=== PATIENT | male | born 1970 | race Caucasian/White ===

== ENCOUNTER → 2016-10-25 | Outpatient (CLI) | payer OTHER ==
--- NOTE | 2016-10-25 17:40 | Diagnostic Imaging Report ---
INDICATION: Low back pain, worse with twisting for four weeks. FINDINGS: Three views of the lumbar spine show normal height and alignment of the vertebral bodies. There is mild disc space narrowing at all levels as well as mild spondylosis. There is some sclerosis of the facets at L4 and L5. There is no fracture. IMPRESSION: There is mild degenerative disc and facet disease present with no acute abnormality seen. Dictated by: Dictated on workstation # [id number]
== END ==
LOC: RAD 17:06
PROVIDERS: ATTEND Nurse Practitioner Family
DX: M54.5 Low back pain (principal)
CPT/HCPCS: 72100

== ENCOUNTER 2019-02-12 20:46 | Outpatient (CLI) | payer OTHER | END 2019-02-13 06:40 | disposition home or self-care (01) | LOC: SLEEP 20:46 | PROVIDERS: ATTEND Otolaryngology Otolaryngology/Facial Plastic Surgery | DX: G47.33 Obstructive sleep apnea (adult) (pediatric) (principal); G25.89 Other specified extrapyramidal and movement disorders; G47.69 Other sleep related movement disorders | CPT/HCPCS: 95811 ==

== ENCOUNTER → 2021-05-03 | Outpatient (CLI) | payer OTHER ==
--- NOTE | 2021-05-03 12:39 | Diagnostic Imaging Report ---
Indication: Low back pain. Compared: 10/25/2016 Findings: Lumbar statures are stable. There is retrolisthesis grade 1 L5 on S1 unchanged, remaining levels align normally. Mild multilevel spondylosis with disc space narrowing and endplate sclerosis with anteriorly directed osteophytes stable. Lower lumbar facet arthrosis chronic. No acute finding . Impression: Stable grade 1 degenerative retrolisthesis 5 on 1 with multilevel spondylosis and facet arthrosis unchanged from prior. Dictated by: Dictated on workstation # [id number]
== END ==
LOC: RAD 11:08
DX: M47.816 Spondylosis without myelopathy or radiculopathy, lumbar region (principal); M43.16 Spondylolisthesis, lumbar region
CPT/HCPCS: 72100

== ENCOUNTER → 2021-05-18 | Outpatient (CLI) | payer OTHER ==
--- NOTE | 2021-05-18 14:50 | Diagnostic Imaging Report ---
Indication: Pre-MRI screening. TIME OF EXAM: 2:51 PM 2 views the orbits were obtained. No radiopaque orbital foreign body is detected. IMPRESSION: No evidence of radiopaque orbital foreign bodies. Dictated by: Dictated on workstation # [id number]
--- NOTE | 2021-05-18 19:13 | Diagnostic Imaging Report ---
PROCEDURE: MRI lumbar spine without contrast. TECHNIQUE: Multiplanar, multisequence MRI of the lumbar spine was performed without contrast. INDICATION: Low back pain. COMPARISON: 05/03/2021. FINDINGS: Five lumbar-type vertebral bodies are visualized with the last well-formed disc space designated L5-S1. No acute fracture or dislocation is seen in the lumbar spine. Alignment is anatomic. Vertebral body heights and disc spaces are well maintained. The bone marrow signal is normal. The conus terminates at the T12-L1 level. No masses are seen associated with the conus or nerve roots of the cauda equina. There is redundancy of the nerve roots of the cauda equina at the L1 and L2 levels secondary to the stenosis at the L2-L3 level. No epidural collections are identified. Multilevel degenerative changes are seen in the lumbar spine with disc bulges, facet hypertrophy, and buckling of the ligamentum flavum. T12-L1: No significant spinal canal or foraminal stenosis. L1-L2: No significant spinal canal or foraminal stenosis. L2-L3: Broad-based disc bulge with right paracentral extrusion with caudal migration of disc contents caudally right of midline, facet hypertrophy, and buckling of the ligamentum flavum result in severe spinal canal stenosis, severe right lateral recess stenosis, and severe right and [id number] left foraminal stenosis. L3-L4: Broad-based disc bulge, facet hypertrophy, and buckling of the ligamentum flavum result in moderate spinal canal stenosis and [id number] bilateral foraminal stenosis. L4-L5: Broad-based disc bulge, facet hypertrophy, and buckling of the ligamentum flavum result in moderate spinal canal stenosis and moderate bilateral foraminal stenosis. L5-S1: Broad-based disc bulge with annular fissure, facet hypertrophy, and buckling of the ligamentum flavum results in hycr-ij-jrggijjh spinal canal stenosis and moderate right and severe left foraminal stenosis. Paravertebral soft tissues are unremarkable. IMPRESSION: 1. No acute fracture or dislocation in the lumbar spine. 2. Multilevel degenerative changes in the lumbar spine, greatest at L2-L3 level with a prominent right paracentral disc extrusion resulting in severe spinal canal and right lateral recess stenosis. Dictated by: Dictated on workstation # [id number]
== END ==
LOC: RAD 14:45
DX: M47.816 Spondylosis without myelopathy or radiculopathy, lumbar region (principal); M48.061 Spinal stenosis, lumbar region without neurogenic claudication
CPT/HCPCS: 72148

== ENCOUNTER 2021-09-23 15:34 | Outpatient (RCR) | payer OTHER | END 2021-09-23 16:11 | disposition home or self-care (01) | PROVIDERS: ATTEND Nurse Practitioner | DX: Z48.89 Encounter for other specified surgical aftercare (principal); I10 Essential (primary) hypertension; Z98.1 Arthrodesis status ==

== ENCOUNTER → 2023-03-24 | Outpatient (CLI) | payer OTHER, SELFPAY ==
--- NOTE | 2023-03-24 17:11 | Diagnostic Imaging Report ---
CLINICAL HISTORY: Hypertension. COMPARISON: None. TECHNIQUE: Non-contrast enhanced EKG-gated axial images were obtained with a coned down field of view to assess for coronary calcium. Post processing of the images was performed on an independent work station. CTDI volume 5.86 mGy DLP 82 mGy*cm FINDINGS: Important Information About Your Scan: The following information is based on an analysis of the coronary arteries only. Calcium deposits do not correspond directly to the percentage of narrowing of the arteries. They do correlated directly to the amount of coronary plaque, and to the risk of future coronary disease. The calcium deposits usually begin to form years before any symptoms develop. Early detection and modification of risk factors, such as smoking and cholesterol intake, can slow the progress of coronary artery disease. A low score suggests a low likelihood of coronary artery disease, but does not exclude the possibility of significant coronary artery narrowing. The results should be discussed with your physician, taking into account other risk factors such as age, gender, family history, diabetes, smoking or high cholesterol levels. Should you ever experience chest pain, difficulty breathing, discomfort radiating into your neck or arm, or discomfort combined with lightheadedness, sweating, fainting or nausea, you should seek prompt medical attention. Calcium Score: Agatston units 0 - 0: No identifiable atherosclerotic plaque 1 - 10: Minimal plaque burden 11 - 100: Mild plaque burden 101 - 400: Moderate plaque burden Greater than 401: Extensive plaque burden. Score Summary: Your total calcium score is 0 Agatston units. Ranking Guide: Your score of 0 Agatston units places you in the 1st percentile rank. That means out of a group of people with same gender and similar age as yourself 99 percent will have a higher calcium score than you, as reported in literature. CORONARY [id number] Left Main artery (LMA) 0 Left Anterior Descending (LAD) 0 Left Circumflex (LCX) 0 Right Coronary Artery (RCA) 0 Posterior Descending Artery (PDA) 0 Total 0 Agatston units The visualized portions of the lungs demonstrate no focal nodules or masses. There are no pleural or pericardial effusions. The visualized osseous structures are age appropriate. IMPRESSION: 1. CT coronary calcium score is 0 Agatston units 2. Adoption and maintenance of a healthy lifestyle is recommended for all people. This includes regular appropriate exercise and observance of a proper diet, to ensure balanced nutrition and weight control. 3. Tobacco use should be avoided. 4. Hypercholesterolemia has been linked to coronary atherosclerosis. Ensure strict adherence to NCEP (National Cholesterol Education Panel) cholesterol-lowering guidelines. For primary prevention, these include a target goal for total cholesterol of less than 200 mg/dL, HDL cholesterol of greater than 40 mg/dL, triglycerides of less than 200 mg/dL and LDL cholesterol of less than 100 mg/dL Secondary prevention involves more stringent goals. However, please note that these are general recommendations and as with all such matters, the personal family physician should be consulted regarding recommendations appropriate for the individual. Recommend evaluation and treatment for all the other cardiovascular risk factors. Dictated by: Dictated on workstation # [id number]
== END ==
LOC: RAD 14:53
PROVIDERS: ATTEND Nurse Practitioner Family
DX: E78.00 Pure hypercholesterolemia, unspecified (principal); I25.10 Atherosclerotic heart disease of native coronary artery without angina pectoris; I10 Essential (primary) hypertension; R60.9 Edema, unspecified
CPT/HCPCS: 75571